=== PATIENT | female | born 1980 | race Caucasian/White ===

== ENCOUNTER 2019-10-11 20:10 | Emergency (ER) | payer BC ==
[~2019-10-11] VITALS: Ht 160 cm; Wt 58.3 kg
[2019-10-11 20:29] VITALS: BP 110/77
[2019-10-11] MEDS ORDERED: LIDOCAINE-MPF 1%, 5ML INFIL ONE (20:30)
--- NOTE | 2019-10-11 22:16 | NUR ---
PA AT BEDSIDE
== END 2019-10-11 22:46 | disposition home or self-care (01) ==
LOC: ED 20:30
DX: S63.281A Dislocation of proximal interphalangeal joint of left index finger, initial encounter (principal); W19.XXXA Unspecified fall, initial encounter; Y93.89 Activity, other specified; Y92.488 Other paved roadways as the place of occurrence of the external cause; Y99.8 Other external cause status
CPT/HCPCS: 26770; 99284